=== PATIENT | female | born 1940 | race Caucasian/White ===

== ENCOUNTER → 2016-12-08 | Outpatient (CLI) | payer MEDICARE, OTHER ==
[~2016-12-08] MED LIST: ATIVAN 1MG T1 MG/TAB PO; BETAPACE 80MG80 MG PO; CALCIUM 500500 M2 PO; CARDI-OMEGA1000 MG PO; COUMADIN 5MG5 MG/TAB PO; DETROL LA4 PO; FOSAMAX 70MG TA70 MG PO; NEXIUM 40MG40 MG PO; PRINIVIL20 MG PO; REGLAN 10MG10 MG/TAB PO; TRAVATAN Z 2.52.5 ML OD; VESICARE10 MG PO; ZOCOR 40MG40 MG PO
== END ==
LOC: COL.RAD 12-05 10:30
DX: D47.2 Monoclonal gammopathy (principal)

== ENCOUNTER 2017-05-04 19:13 | Inpatient (IN) | payer MEDICARE, OTHER ==
[~2017-05-04] VITALS: Ht 172.7 cm; Wt 73.9 kg
[2017-05-04 21:16] VITALS: BP 146/76; PULSE 69; TEMP 98.2
[2017-05-04 22:53] LABS: PH 6 (5-8); SQUAMOUS EPITHELIAL 0-2 /hpf; URINE APPEARANCE Clear; URINE BACTERIA None Seen /hpf; URINE BILIRUBIN Negative (NEGATIVE); URINE BLOOD 2+ (NEGATIVE); URINE COLOR Yellow; URINE GLUCOSE Negative (NEGATIVE); URINE KETONE 1+ (NEGATIVE); URINE RBC 20-50 /hpf; URINE UROBILINOGEN Negative (NEGATIVE)
[2017-05-05] VITALS (15 sets, daily range): BP systolic 94–147; BP diastolic 42–90; PULSE 69–81; TEMP 97.1–99.8
[2017-05-05] MEDS ORDERED: TYLENOL 325MG325 MG PO (01:29)
[2017-05-05] MEDS ORDERED: CALCIUM 600MG+D1 TAB PO (01:34)
[2017-05-05] MEDS ORDERED: COLACE 100100 MG/CAP PO (01:35)
[2017-05-05] MEDS ORDERED: COSOPT 2%-0.5%10 ML OU (01:38)
[2017-05-05] MEDS ORDERED: XALATAN EYE DROPS OD (01:39)
[2017-05-05] MEDS ORDERED: MULTI VITAMINS1 TAB PO (01:40)
[2017-05-05] MEDS ORDERED: NEXIUM 40MG40 MG PO (01:41)
[2017-05-05] MEDS ORDERED: EXELON PAT4.6 MG/24 TD (01:44)
[2017-05-05] MEDS ORDERED: ULTRAM 50MG TAB50 MG PO (01:45)
[2017-05-05] MEDS ORDERED: VESICARE10 MG PO (01:46)
[2017-05-05] MEDS ORDERED: COUMADIN 22.5 MG/TAB PO (01:58)
[2017-05-05 06:27] LABS: BASO % 0.3 % (0.0-2.0); EOS # 0.1 (0.0-0.7); EOS % 1.4 % (0-4.0); GRAN # 6.4 (1.4-6.5); GRAN % 72.3 % (42.2-75.2); HEMATOCRIT 34.5 % (37.0-47.0); LYMPH # 1.3 (1.2-3.4); MEAN CELL VOLUME 91 fl (80.0-100.0); MEAN CORPUSCULAR HEMOGLOBIN 29 pg (27.0-31.0); MEAN CORPUSCULAR HGB CONC 32 g/dl (33.0-37.0); MEAN PLATELET VOLUME 10.3 fl (7.4-10.4); MONO # 0.9 (0.1-0.6); MONO % 10.3 % (1.7-9.3); PLATELET COUNT 149 K/mm3 (130-400); RED BLOOD COUNT 3.78 M/mm3 (4.10-5.30); REDCELL DISTRIBUTION WIDTH-CV 13.5 % (11.5-14.5); WHITE BLOOD COUNT 8.9 K/mm3 (4.8-10.8)
[2017-05-05 06:37] LABS: CALCIUM 8.9 mg/dL (8.4-10.2); CREATININE, serum 0.76 mg/dL (0.52-1.25); POTASSIUM 3.7 mmol/L (3.4-5.0)
[2017-05-06] VITALS (9 sets, daily range): BP systolic 90–112; BP diastolic 37–47; PULSE 43–74; TEMP 97.5–101.7
[2017-05-06 07:03] LABS: HEMATOCRIT 29.3 % (37.0-47.0); HEMOGLOBIN 9.3 g/dl (12.5-16.0)
[2017-05-06 16:38] LABS: MEAN CELL VOLUME 90 fl (80.0-100.0); MEAN CORPUSCULAR HGB CONC 33 g/dl (33.0-37.0); MEAN PLATELET VOLUME 9.9 fl (7.4-10.4); PLATELET COUNT 127 K/mm3 (130-400); RED BLOOD COUNT 2.98 M/mm3 (4.10-5.30); REDCELL DISTRIBUTION WIDTH-CV 13.3 % (11.5-14.5); WHITE BLOOD COUNT 11.4 K/mm3 (4.8-10.8)
[2017-05-06 16:39] LABS: HEMATOCRIT 26.9 % (37.0-47.0); HEMOGLOBIN 8.8 g/dl (12.5-16.0); MEAN CORPUSCULAR HEMOGLOBIN 30 pg (27.0-31.0)
[2017-05-06 17:00] LABS: CALCIUM 8.4 mg/dL (8.4-10.2); CREATININE, serum 0.75 mg/dL (0.52-1.25); POTASSIUM 3.5 mmol/L (3.4-5.0)
[2017-05-06 19:09] LABS: PH 5 (5-8); URINE APPEARANCE Clear; URINE BACTERIA Rare /hpf; URINE BILIRUBIN Negative (NEGATIVE); URINE BLOOD 3+ (NEGATIVE); URINE COLOR Yellow; URINE GLUCOSE Negative (NEGATIVE); URINE KETONE Negative (NEGATIVE); URINE UROBILINOGEN Negative (NEGATIVE)
[2017-05-07 02:02] VITALS: BP 84/43; PULSE 70; TEMP 99.5
[2017-05-07 05:40] VITALS: BP 105/49; BP 80/58; PULSE 70; TEMP 98.7
[2017-05-07 07:13] LABS: HEMATOCRIT 25.2 % (37.0-47.0); HEMOGLOBIN 8.1 g/dl (12.5-16.0)
[2017-05-07 09:58] VITALS: BP 109/66; PULSE 71; TEMP 97.9
[2017-05-07 10:34] LABS: BASO % 0.3 % (0.0-2.0); EOS # 0.1 (0.0-0.7); EOS % 0.8 % (0-4.0); GRAN # 7.5 (1.4-6.5); GRAN % 76.6 % (42.2-75.2); LYMPH # 1.1 (1.2-3.4); LYMPH % 10.9 % (20.0-51.0); MEAN CELL VOLUME 91 fl (80.0-100.0); MEAN CORPUSCULAR HEMOGLOBIN 29 pg (27.0-31.0); MEAN CORPUSCULAR HGB CONC 32 g/dl (33.0-37.0); MEAN PLATELET VOLUME 11.7 fl (7.4-10.4); MONO % 10.6 % (1.7-9.3); PLATELET COUNT 121 K/mm3 (130-400); RED BLOOD COUNT 2.82 M/mm3 (4.10-5.30); REDCELL DISTRIBUTION WIDTH-CV 13.3 % (11.5-14.5); WHITE BLOOD COUNT 9.8 K/mm3 (4.8-10.8)
[2017-05-07 14:30] VITALS: BP 107/57; PULSE 67; TEMP 98.3
[2017-05-07 15:21] VITALS: BP 114/52; PULSE 70; TEMP 98.8
[2017-05-07 20:00] VITALS: BP 98/71; PULSE 69; TEMP 99.5
[2017-05-08 01:55] VITALS: BP 96/58; PULSE 70; TEMP 97.9
[2017-05-08 05:38] VITALS: BP 148/62; PULSE 72; TEMP 98.7
[2017-05-08 07:19] LABS: BASO % 0.2 % (0.0-2.0); EOS # 0.1 (0.0-0.7); EOS % 1.3 % (0-4.0); GRAN # 6.9 (1.4-6.5); MEAN CELL VOLUME 91 fl (80.0-100.0); MEAN CORPUSCULAR HGB CONC 32 g/dl (33.0-37.0); MEAN PLATELET VOLUME 11.4 fl (7.4-10.4); MONO # 0.9 (0.1-0.6); MONO % 9.5 % (1.7-9.3); PLATELET COUNT 164 K/mm3 (130-400); RED BLOOD COUNT 2.88 M/mm3 (4.10-5.30); REDCELL DISTRIBUTION WIDTH-CV 13.2 % (11.5-14.5)
[2017-05-08 07:21] LABS: HEMATOCRIT 26.2 % (37.0-47.0); HEMOGLOBIN 8.4 g/dl (12.5-16.0); MEAN CORPUSCULAR HEMOGLOBIN 29 pg (27.0-31.0)
[2017-05-08 07:22] LABS: CALCIUM 8.6 mg/dL (8.4-10.2); CREATININE, serum 0.71 mg/dL (0.52-1.25); POTASSIUM 3.3 mmol/L (3.4-5.0)
[2017-05-08 09:48] VITALS: BP 98/44; PULSE 69; TEMP 98
[2017-05-08 15:28] VITALS: BP 98/44; PULSE 69; TEMP 98
== END 2017-05-08 16:30 | DRG 481 ==
LOC: SURG 20:41
PROVIDERS: Internal Medicine Cardiovascular Disease; Nurse Practitioner Family; Orthopaedic Surgery
PROC: 0QS606Z Reposition Right Upper Femur with Intramedullary Internal Fixation Device, Open Approach (ICD-10-PCS; principal; 2017-05-05 09:30)
DX: M80.051A Age-related osteoporosis with current pathological fracture, right femur, initial encounter for fracture (principal); N39.0 Urinary tract infection, site not specified; W18.30XA Fall on same level, unspecified, initial encounter; I10 Essential (primary) hypertension; I48.91 Unspecified atrial fibrillation; Z95.0 Presence of cardiac pacemaker; Z79.01 Long term (current) use of anticoagulants; Z85.038 Personal history of other malignant neoplasm of large intestine; F03.90 Unspecified dementia, unspecified severity, without behavioral disturbance, psychotic disturbance, mood disturbance, and anxiety; Z87.891 Personal history of nicotine dependence; D64.9 Anemia, unspecified
CPT/HCPCS: 99223-AI; 99233-AI; 99238; A9284; C1713; J0690; J0696; J1170; J2250; J2270; J2405; J2550; J2704; J3010